=== PATIENT | male | born 1970 | race Two or more races ===

== ENCOUNTER 2020-05-11 05:01 | Emergency (ER) | payer MEDICAID ==
[~2020-05-11] VITALS: Ht 162.6 cm; Wt 76.1 kg
[2020-05-11 05:05] VITALS: BP 173/98
--- NOTE | 2020-05-11 06:12 | NUR ---
49/M. R shoulder pain for the last couple of days. States difficulty moving. Hx of gonorrhea that spread to pt shoulder, knee, and wrist. Required surgery. Pt reports it is a similar feeling.
[2020-05-11 06:50] LABS: BASOPHILS # (AUTO) 0.04 x10^3/uL (0-0.1); BASOPHILS % (AUTO) 0 % (0-1); EOSINOPHILS % (AUTO) 2 % (1-7); LYMPHOCYTES # (AUTO) 2.02 x10^3/uL (1-3.4); LYMPHOCYTES % (AUTO) 23 % (22-44); MD NO; MEAN CORPUSCULAR HEMOGLOBIN 27.6 pg (27.5-34.5); MEAN CORPUSCULAR HGB CONC 32.6 g/dL (33.2-36.2); MEAN CORPUSCULAR VOLUME 84.6 fL (81-97); MEAN PLATELET VOLUME 8.2 fL (7.4-10.4); MONOCYTES # (AUTO) 0.55 x10^3/uL (0.2-0.8); MONOCYTES % (AUTO) 6 % (2-9); NEUTROPHILS # (AUTO) 6.09 x10^3/uL (1.8-6.8); NEUTROPHILS % (AUTO) 69 % (42-75); PLATELET COUNT 276 x10^3/uL (130-400); RED BLOOD COUNT 4.92 x10^6/uL (4.38-5.82); RED CELL DISTRIBUTION WIDTH 16.2 % (9.4-14.8)
--- NOTE | 2020-05-11 06:58 | NUR ---
Report given to ELYSSA Garcia.
[2020-05-11 07:02] LABS: ALBUMIN 3.8 g/dL (3.4-5.0); ANION GAP 4 mmol/L (5-15); CALCIUM 8.6 mg/dL (8.5-10.1); CHLORIDE 106 mmol/L (98-107); CREATININE 0.73 mg/dL (0.7-1.3)
== END 2020-05-11 08:01 | disposition home or self-care (01) ==
LOC: ED 07:55
DX: M25.511 Pain in right shoulder (principal); M25.532 Pain in left wrist; M25.562 Pain in left knee
CPT/HCPCS: 36415; 80048; 82040; 83605; 85025; 99284

== ENCOUNTER 2020-12-10 16:14 | Emergency (ER) | payer MEDICAID ==
[~2020-12-10] VITALS: Ht 162.6 cm; Wt 82.3 kg
--- NOTE | 2020-12-10 16:35 | NUR ---
C/O WITHDRAWAL SYMPTOMS: "LIKE SPIDERS CRAWLING" ON ARMS & HEAD, "I CAN'T RELAX" HOPES PRESCRIBED (RX FILL DATE: 11/29/20) BUSPIRONE 7.5MG, SERTRALINE 50MG. "IDIDN'T LIKE HOW THEY MADE ME FEEL SO I STOPPED TAKING THEM." LAST DOSE FOR BOTH: 2 DAYS AGO. YASMIN CORREA AT BEDSIDE. PT ATTACHED TO ALL MONITORS. VSS. CRISTINA.
[2020-12-10 17:28] VITALS: BP 127/81
--- NOTE | 2020-12-10 18:08 | NUR ---
Patient/Caregiver given discharge instructions and they have confirmed that they understand the instructions. Patient ambulatory with steady gait.
== END 2020-12-10 18:09 | disposition home or self-care (01) ==
LOC: ED 18:07
DX: F10.132 Alcohol abuse with withdrawal with perceptual disturbance (principal); F15.10 Other stimulant abuse, uncomplicated; F41.9 Anxiety disorder, unspecified; Y90.0 Blood alcohol level of less than 20 mg/100 ml
CPT/HCPCS: 99281

== ENCOUNTER 2021-02-28 19:04 | Emergency (ER) | payer MEDICAID ==
[~2021-02-28] VITALS: Ht 162.6 cm; Wt 83.3 kg
[2021-02-28 19:16] VITALS: BP 157/88
[2021-02-28] MEDS ORDERED: IBUPROFEN 800 MG TABLET ONE (19:56)
--- NOTE | 2021-02-28 19:59 | NUR ---
ROD WELDER PER MAR.
[2021-02-28] MEDS ORDERED: IBUPROFEN 800 MG TABLET PO ONE (20:00)
--- NOTE | 2021-02-28 20:04 | NUR ---
PT GOING TO XR
--- NOTE | 2021-02-28 20:36 | NUR ---
PT GOING TO US
--- NOTE | 2021-02-28 21:35 | NUR ---
ALL RESULTS ARE BACK AT THIS TIME. CHART UP FOR RECHECK.
--- NOTE | 2021-02-28 22:03 | NUR ---
PT STATES DOES NOT NEED CRUTCHES.
== END 2021-02-28 22:11 | disposition home or self-care (01) ==
LOC: ED 20:39
DX: S83.91XA Sprain of unspecified site of right knee, initial encounter (principal); I80.01 Phlebitis and thrombophlebitis of superficial vessels of right lower extremity; M71.21 Synovial cyst of popliteal space [Baker], right knee; X50.0XXA Overexertion from strenuous movement or load, initial encounter; Y93.89 Activity, other specified; Y92.410 Unspecified street and highway as the place of occurrence of the external cause; Y99.8 Other external cause status
CPT/HCPCS: 99284